=== PATIENT | female | born 1985 | race Caucasian/White ===

== ENCOUNTER 2020-11-18 23:17 | Emergency (ER) | payer MEDICARE, MEDICAID ==
[~2020-11-18] VITALS: Ht 167.6 cm; Wt 68.0 kg
[~2020-11-18 23:17] MED LIST: ALBU8HFA PO; BENZ0.5T43 PO; BUS15T PO; CARB300C9 PO; CLON0.5T5 PO; ESTR1TAB19 PO; LEVE750T6 PO; LEVO75TA7 PO; LITH450T2 PO; LURA120T PO; MONT10TA32 PO; OMEP20CA15 PO; PRAZ1CAP5 PO; PRED10TA PO; SERT-434 PO
[2020-11-19 01:37] VITALS: BP 106/62
== END 2020-11-19 01:37 | disposition home or self-care (01) ==
LOC: ER 23:17
DX: G40.909 Epilepsy, unspecified, not intractable, without status epilepticus (principal); J45.909 Unspecified asthma, uncomplicated; F41.9 Anxiety disorder, unspecified; F31.9 Bipolar disorder, unspecified; Z86.73 Personal history of transient ischemic attack (TIA), and cerebral infarction without residual deficits; Z86.69 Personal history of other diseases of the nervous system and sense organs; Z88.1 Allergy status to other antibiotic agents; Z91.040 Latex allergy status; Z79.899 Other long term (current) drug therapy
CPT/HCPCS: 99284

== ENCOUNTER 2022-10-24 11:46 | Outpatient (CLI) | payer MEDICARE, MEDICAID ==
[~2022-10-24 11:46] MED LIST changes: +BENZ0.5T3 PO; -BENZ0.5T43 PO; +MONT-40 PO; -MONT10TA32 PO
== END 2022-10-24 23:59 | disposition home or self-care (01) ==
LOC: RAD 11:46
PROVIDERS: ATTEND Nurse Practitioner Psychiatric/Mental Health
DX: Z79.899 Other long term (current) drug therapy (principal)
CPT/HCPCS: 93005